=== PATIENT | female | born 1980 | race Caucasian/White ===

== ENCOUNTER → 2022-06-01 13:52 | Outpatient (CLI) | payer OTHER, SELFPAY ==
--- NOTE | ~2022-06-01 | US_ITS ---
EXAMINATION: US pelvic complete w TV DATE: 06/01/2022 14:26 INDICATION: Pelvic and perineal pain Comparison:No prior studies for comparison. TECHNIQUE: Multiple transabdominal and endovaginal sonographic images of the pelvis performed. FINDINGS: The uterus measures 7.1 x 4.9 x 6.2 cm. There is a large uterine fibroid measuring 4.6 x 4. 2 x 4.1 cm. The endometrial complex measures 4 mm. The right ovary measures 3.1 x 1.5 x 2.2 cm and the left ovary measures 1.9 x 1 x 1.5 cm. There are small follicles in each ovary. Normal doppler signal in both ovaries. There is no free fluid in the pelvis. There are no abnormal masses seen on either side. IMPRESSION: 1. Uterine fibroid measuring 4.6 cm maximum dimension. Reviewed, dictated and finalized at location B.
== END ==
PROVIDERS: PCP Nurse Practitioner; Visit Provider Nurse Practitioner
DX: R19.09 Other intra-abdominal and pelvic swelling, mass and lump (principal); R10.2 Pelvic and perineal pain
CPT/HCPCS: 76830; 76856

== ENCOUNTER → 2022-08-11 08:51 | Outpatient (CLI) | payer OTHER, SELFPAY ==
--- NOTE | ~2022-08-11 | US_ITS ---
EXAMINATION: US breast LT limited HISTORY: Patient with pain in the left axilla recent negative mammogram TECHNIQUE: Limited ultrasound of the left axilla was performed in the area of clinical concern. FINDINGS: No suspicious cystic or solid mass is identified. There is a normal-appearing lymph node in the left axilla in the area of the palpable abnormality. IMPRESSION: No suspicious sonographic correlate is identified for the patient's reported left axillary pain. Furt her evaluation at this time should be based on clinical assessment. Continued follow-up physical exam ination is recommended. BI-RADS Category 1: Negative Reviewed, dictated and finalized at location A. [facility] IMPRESSION: No suspicious sonographic correlate is identified for the patient's reported le ft axillary pain. Further evaluation at this time should be based on clinical a ssessment. Continued follow-up physical examination is recommended. BI-RADS Category 1: Negative
== END ==
PROVIDERS: PCP Family Medicine; Visit Provider Nurse Practitioner
DX: N64.4 Mastodynia (principal)
CPT/HCPCS: 76642